=== PATIENT | male | born 1950 | race Two or more races ===

== ENCOUNTER 2021-11-12 15:17 | Inpatient (IN) | payer MEDICARE ==
[~2021-11-12] VITALS: Ht 182.9 cm; Wt 77.6 kg
[2021-11-12] MEDS ORDERED: QUET25TA PO (17:46)
--- NOTE | 2021-11-12 17:54 | NUR ---
RN-CO: Notified Dr Camarena regarding this new admit patient.
[2021-11-12 18:09] VITALS: BP 160/69
[2021-11-12] MEDS ORDERED: MAGNESIUM HYDROXIDE 30 ML UDC PO PRN (18:30)
[2021-11-12] MEDS ORDERED: LORAZEPAM 0.5 MG TABLET PO PRN (18:30)
[2021-11-12] MEDS ORDERED: ACETAMINOPHEN 325 MG TABLET PO PRN (18:30)
[2021-11-12] MEDS ORDERED: BLOOD SUGAR DIAGNOSTIC 1 EACH STRIP IN ONE (18:30)
[2021-11-12] MEDS ORDERED: MAG HYDROX/AL HYDROX/SIMETH 30 ML UDC PO PRN (18:30)
--- NOTE | 2021-11-12 18:34 | NUR ---
RN-CO: Dr Migue Young ( inspector conveyor line ) called back and gave admitting orders.
--- NOTE | 2021-11-12 19:05 | NUR ---
GPS DELIVERY CREW MEMBER NOTES: ADMITTED A 69-Y/O, MALE, FROM [facility]. ADMITTED ON 5150 FOR DTS. PER HOLD, PATIENT PRESENTS COMPLAINING OF WORSENING DEPRESSION AND ANXIETY, FEELING HOPELESS AND SUICIDAL. PATIENT CONTINUES TO ENDORSE SUICIDAL IDEATIONS WITH PLAN AND INTENT TO OVERDOSE ON MEDICATION "PILLS". UPON FACE TO FACE ASSESSMENT, PATIENT IS ALERT AND ORIENTED X4, COOPERATIVE TO CARE, GUARDED AND BLUNTED AFFECT. DENIED SI/HI/AVH AT THIS TIME. SKIN ASSESSMENT DONE. SKIN IS CLEAR. HANDBOOK AND PRESCRIPTION MEDICATIONS GUIDE GIVEN TO PATIENT. PATIENT HAS BEEN ORIENTED TO UNIT POLICY. BELONGINGS WERE INVENTORIED AND CHECKED FOR CONTRABAND. PATIENT IS UNDER THE PSYCHIATRIC CARE OF DR. SHEA AND MEDICAL CARE OF DR. VALDIVIA. BED IN LOW AND LOCKED POSITION. SIDE RAILS UP X2. SAFETY PRECAUTIONS MAINTAINED. WILL CONTINUE TO MONITOR Q15 MINS FOR MOOD, SAFETY AND BEHAVIOR. Addendum: 11/13/21 at 0441 by JANICE KUMAR RN PATIENT'S DAUGHTER VIANCA FRIENDSHIP NOTIFIED OF PATIENT'S ADMISSION.
[2021-11-12 20:00] VITALS: BP 112/60
[2021-11-12] MEDS: TEMAZEPAM 7.5 MG CAPSULE PO PRN (20:10)
[2021-11-13 08:00] VITALS: BP 108/64
[2021-11-13] MEDS: QUETIAPINE FUMARATE 25 MG TABLET PO SCH ×3 (09:25→17:45)
--- NOTE | 2021-11-13 13:49 | NUR ---
MASSIEL Clinical Note: Patient placed on a 5150 hold for danger to self. Patient brought in due to pt having suicidal thoughts. Pt lives at [address] [place] [address]; ([phone]). Patient is unsure if he wants to go back home or would want to go to a SNF. SW gave pt options.
--- NOTE | 2021-11-13 13:49 | NUR ---
MASSIEL Initial Discharge Plan: Pt lives at [address] [place] [address]; ([phone]). Patient is unsure if he wants to go back home or would want to go to a SNF. MASSIEL gave pt options. MASSIEL will work with the MD, treatment team, and doctor to help coordinate appropriate discharge.
--- NOTE | 2021-11-13 13:50 | NUR ---
Social Work Note/Substance Abuse Intervention: Patient was provided with a brief substance abuse intervention and referred to [facility] ([phone]), [facility] ([phone]), and [facility] ([phone]) for using cocaine.
--- NOTE | 2021-11-13 14:51 | NUR ---
SW Family Contact: SW attempted to contact pt's Trupti ([phone]) to gather collateral and discuss treatment plan. However, 's phone was off and had no voicemail. SW unable to leave voicemail at this time.
--- NOTE | 2021-11-13 14:53 | NUR ---
MASSIEL Family Contact: Per pt's request he wanted this flex o writer operator to contact daughter Marissa ([phone]) to discuss treatment/discharge plan. MASSIEL left a detailed voicemail.
--- NOTE | 2021-11-13 15:58 | NUR ---
Patient refused all labs ,encourage and explained importance x3 still refused .
[2021-11-13 16:00] VITALS: BP 103/58
--- NOTE | 2021-11-13 16:01 | NUR ---
Individual Counseling: SW attempted to do individual counseling with pt. However, the pt. was sleeping and not aroused via verbal cues. Pt. will be invited to next therapeutic milieu.
[2021-11-13 19:34] VITALS: BP 106/52
[2021-11-14 08:00] VITALS: BP 107/63
[2021-11-14] MEDS: QUETIAPINE FUMARATE 25 MG TABLET PO SCH ×3 (09:50→17:49)
--- NOTE | 2021-11-14 10:44 | NUR ---
MASSIEL Family Contact: MASSIEL spoke with patient's daughter Marissa ([phone]) to discuss treatment and discharge plan. SW discussed facility options and daughter was agreeable with this plan.
[2021-11-14] MEDS: TEMAZEPAM 7.5 MG CAPSULE PO PRN (21:02)
[2021-11-15 08:00] VITALS: BP 138/66
--- NOTE | 2021-11-15 08:23 | NUR ---
MASSIEL SNF Referral: MASSIEL sent clinicals to [facility] ([phone]) for placement. MASSIEL sent H & P, progress notes, and medications list.
--- NOTE | 2021-11-15 08:30 | NUR ---
CALL OUT TO DR. RYAN'S OFFICE FOR CONSULT,ORDERED YESTERDAY.
[2021-11-15] MEDS: QUETIAPINE FUMARATE 25 MG TABLET PO SCH ×3 (09:00→18:08)
--- NOTE | 2021-11-15 10:32 | NUR ---
given ativan for agitation. Addendum: 11/15/21 at 1547 by STEVEN WALTERS RN duplicate entry.
--- NOTE | 2021-11-15 10:45 | NUR ---
GIVEN ATIVAN FOR SEVERE AGITATION.
--- NOTE | 2021-11-15 10:46 | NUR ---
ALLIGATOR TRAPPER INFORMED TO SPEAK WITH PT.ABOUT NEW HOLD.
--- NOTE | 2021-11-15 14:53 | NUR ---
MASSIEL Note: SW spoke with patient in regards to 5150 hold and 5250 hold. He appeared understanding.
--- NOTE | 2021-11-15 14:54 | NUR ---
MASSIEL Note: SW expressed to pt that this writer producer has sent his clinicals and is waiting for the facilities to review.
--- NOTE | 2021-11-15 14:55 | NUR ---
MASSIEL Family Contact: MASSIEL spoke with patient's daughter Marissa ([phone]) and updated on pt's current condition.
[2021-11-15 16:00] VITALS: BP 136/79
--- NOTE | 2021-11-15 16:04 | NUR ---
spoke to soc. worker several times to speak with pt. pt. forgetful and asks same questions more than once.
[2021-11-15 20:00] VITALS: BP 110/68
[2021-11-15] MEDS: TEMAZEPAM 7.5 MG CAPSULE PO PRN (21:44)
[2021-11-16 06:35] LABS: EOSINOPHILS % (AUTO) 5.4 % (0.0-6.0); HEMATOCRIT 41 % (39-51); HEMOGLOBIN 13.7 g/dL (13.5-17.5); LYMPHOCYTES # (AUTO) 1.9 K/uL (0.8-4.8); MEAN CORPUSCULAR HGB CONC 34 g/dl (31.0-36.0); MEAN CORPUSCULAR VOLUME 91 fL (80-96); MONOCYTES # (AUTO) 0.5 K/uL (0.1-1.30); MONOCYTES % (AUTO) 10.6 % (2.0-12.0); NEUTROPHILS # (AUTO) 2.4 K/uL (1.8-8.9); PLATELET COUNT (AUTO) 160 K/uL (150-450); RED BLOOD CELL COUNT(AUTO) 4.49 MIL/uL (4.5-6.0); WHITE BLOOD COUNT (AUTO) 5.1 K/uL (4.3-11.0)
[2021-11-16 07:28] LABS: CALCIUM, SERUM 8.7 mg/dL (8.5-10.1); CREATININE 0.8 mg/dL (0.6-1.3); MAGNESIUM 2.1 mg/dL (1.8-2.4); POTASSIUM 4.2 mmol/L (3.5-5.1)
[2021-11-16 08:00] VITALS: BP 116/64
[2021-11-16] MEDS: QUETIAPINE FUMARATE 25 MG TABLET PO SCH ×3 (08:33→16:17)
[2021-11-16 16:00] VITALS: BP 105/59
--- NOTE | 2021-11-16 19:30 | NUR ---
GPS RN NOTE, RECEIVED PATIENT AWAKE AND IN BED, NO S/S OR COMPLAINTS OF PAIN AT THIS TIME. PATIENT IS DISPLAYING NO S/S OF APPARENT DISTRESS AT THIS TIME. PATIENT BREATHING IS UNLABORED WITH EQUAL RISE AND FALL OF THE CHEST. PATIENT IS ALERT AND ORIENTED X 3 ON ROOM AIR WITH A SPO2 97%. PATIENT IS COMPLIANT WITH MEDICATIONS, NEEDY, ATTENTION SEEKING, ANXIOUS AT TIMES, AND COOPERATIVE. PATIENT DENIES SUICIDAL AND HOMICIDAL IDEATIONS AT THIS TIME. PATIENT ASSISTED WITH TURNING AND REPOSITIONING Q2HR AND PRN FOR COMFORT AND CIRCULATION. PATIENT HAS NO NEEDS AT THIS TIME. PATIENT EDUCATED ON THE USE OF THE CALL ESCOBAR. PATIENT BED SIDE RAILS UP X 2 FOR SAFETY. PATIENT BED IS LOCKED, LOW, WITH BED ALARM ON. WILL CONTINUE TO MONITOR THIS PATIENT Q15 MINUTES WITH THE HELP OF STAFF TO MAINTAIN SAFETY.
[2021-11-16 20:00] VITALS: BP 128/59
[2021-11-16] MEDS: TEMAZEPAM 7.5 MG CAPSULE PO PRN (21:38)
--- NOTE | 2021-11-16 21:39 | NUR ---
GPS RN NOTE, PATIENT HAS A COMPLAINT OF NOT BEING ABLE TO SLEEP AND IS REQUESTING RESTORIL AT THIS TIME. PATIENT VITAL SIGNS ARE STABLE. GAVE RESTORIL 7.5MG PO HS PRN ORDERED. WILL REASSESS FOR INSOMNIA AND I WILL CONTINUE TO MONITOR THIS PATIENT WITH THE HELP OF STAFF.
[2021-11-17 08:00] VITALS: BP 109/64
[2021-11-17] MEDS: QUETIAPINE FUMARATE 25 MG TABLET PO SCH ×3 (08:46→16:20)
--- NOTE | 2021-11-17 09:20 | NUR ---
RN Notes: Received pt. awake in his room and interacting with the room mate. No distress and no agitation noted. Ate 100% for breakfast, compliant on med. Pt. doesn't want to disclose information to anybody. Encouraged to verbalize feelings and motivated to attend group activity. Needs attended and will continue to monitor for safety.
--- NOTE | 2021-11-17 10:38 | NUR ---
SW SNF Contact: MASSIEL received a call from [facility] ([phone]) who stated that pt is accepted at [facility].
--- NOTE | 2021-11-17 10:39 | NUR ---
MASSIEL Note: SW spoke with patient being accepted at [facility] and he was agreeable of this.
--- NOTE | 2021-11-17 10:39 | NUR ---
MASSIEL Family Contact: SW contacted pt's daughter Marissa ([phone]) and left a detailed voicemail that pt is accepted at [facility] and that he will be discharged on Saturday, 11/20.
--- NOTE | 2021-11-17 10:40 | NUR ---
Court Notification: MASSIEL contacted pt's daughter Marissa ([phone]) and left a voicemail of pt's 1721 hearing is today.
--- NOTE | 2021-11-17 15:17 | NUR ---
Court Hearing: Patient's court hearing for 4120 was today and it was upheld for GD.
[2021-11-17 16:00] VITALS: BP 151/55
[2021-11-17 20:33] VITALS: BP 133/72
[2021-11-17] MEDS: TEMAZEPAM 7.5 MG CAPSULE PO PRN (21:02)
[2021-11-18 08:00] VITALS: BP 114/59
[2021-11-18] MEDS: QUETIAPINE FUMARATE 25 MG TABLET PO SCH ×3 (08:02→16:10)
--- NOTE | 2021-11-18 09:39 | NUR ---
RN Notes: Received pt. awake in his room and interacting with the room mate. Ate 100% for breakfast and compliant on med. Encouraged to verbalize feelings and motivated to attend group activity. Needs attended, no distress and no agitation noted. Will continue to monitor for safety.
[2021-11-18 16:00] VITALS: BP 110/61
--- NOTE | 2021-11-18 19:30 | NUR ---
GPS RN NOTE, RECEIVED PATIENT AWAKE AND IN BED, NO S/S OR COMPLAINTS OF PAIN AT THIS TIME. PATIENT IS DISPLAYING NO S/S OF APPARENT DISTRESS AT THIS TIME. PATIENT BREATHING IS UNLABORED WITH EQUAL RISE AND FALL OF THE CHEST. PATIENT IS ALERT AND ORIENTED X 3 ON ROOM AIR WITH A SPO2 98%. PATIENT IS COMPLIANT WITH MEDICATIONS, NEEDY, HYPERVERBAL, ATTENTION SEEKING, ANXIOUS AT TIMES, AND COOPERATIVE. PATIENT DENIES SUICIDAL AND HOMICIDAL IDEATIONS AT THIS TIME. PATIENT ASSISTED WITH TURNING AND REPOSITIONING Q2HR AND PRN FOR COMFORT AND CIRCULATION. PATIENT HAS NO NEEDS AT THIS TIME. PATIENT EDUCATED ON THE USE OF THE CALL ESCOBAR. PATIENT BED SIDE RAILS UP X 2 FOR SAFETY. PATIENT BED IS LOCKED, LOW, WITH BED ALARM ON. WILL CONTINUE TO MONITOR THIS PATIENT Q15 MINUTES WITH THE HELP OF STAFF TO MAINTAIN SAFETY.
[2021-11-18 20:13] VITALS: BP 117/64
[2021-11-18] MEDS: TEMAZEPAM 7.5 MG CAPSULE PO PRN (20:47)
--- NOTE | 2021-11-19 07:50 | NUR ---
RN NOTE PATIENT IS AWAKE IN BED RESTING A/O X 4. NO S/S OF PAIN NOTED AT THIS TIME. ON ROOM AIR, NO DISTRESS OR SHORTNESS OF BREATH NOTED. PATIENT IS COMPLIANT WITH MEDICATIONS. PATIENT DENIES SUICIDAL AND HOMICIDAL IDEATIONS AT THIS TIME. FALL AND SAFETY MEASURES IN PLACE, BED IN LOW AND LOCK POSITION, CALL LIGHT AND TABLE WITHIN EASY REACH, SIDE RAILS UP X2. PATIENT EDUCATED ON THE USE OF THE CALL ESCOBAR. PATIENT HAS NO NEEDS AT THIS TIME. WILL CONTINUE TO MONITOR THIS PATIENT Q15 MINUTES TO MAINTAIN SAFETY.
[2021-11-19 08:00] VITALS: BP 119/66
[2021-11-19] MEDS: QUETIAPINE FUMARATE 25 MG TABLET PO SCH ×3 (08:27→17:46)
[2021-11-19 16:00] VITALS: BP 107/57
--- NOTE | 2021-11-19 18:20 | NUR ---
RN NOTE PATIENT IS GOING TO BE D/C TO [facility] TOMORROW, SATURDAY, COVID-19 TEST WAS COLLECTED AND TAKEN TO THE LAB.
--- NOTE | 2021-11-19 18:42 | NUR ---
RN CLOSING NOTE PATIENT IS AWAKE IN BED RESTING A/O X 4. NO S/S OF PAIN NOTED AT THIS TIME. ON ROOM AIR, NO DISTRESS OR SHORTNESS OF BREATH NOTED. PATIENT IS COMPLIANT WITH MEDICATIONS. PATIENT DENIES SUICIDAL AND HOMICIDAL IDEATIONS AT THIS TIME. FALL AND SAFETY MEASURES IN PLACE, BED IN LOW AND LOCK POSITION, CALL LIGHT AND TABLE WITHIN EASY REACH, SIDE RAILS UP X2. PATIENT EDUCATED ON THE USE OF THE CALL ESCOBAR. PATIENT HAS NO NEEDS AT THIS TIME. PATIENT WAS MONITOR Q15 MINUTES TO MAINTAIN SAFETY. WILL ENDORSE TO [employer]URAL SCIENCES DEPARTMENT CHAIR.
[2021-11-19 19:45] VITALS: BP 111/76
[2021-11-19 20:00] VITALS: BP 117/72
[2021-11-19] MEDS: TEMAZEPAM 7.5 MG CAPSULE PO PRN (20:19)
[2021-11-20 08:00] VITALS: BP 117/67
--- NOTE | 2021-11-20 08:09 | NUR ---
SW Discharge Note: Patient will be discharged to residential facility [facility] [address] [address], [place] [address]; ). Please arrange ambulance at 1PM. Stump Shooter spoke with Ref[facility] Receiving Manager at [facility]; ([phone]), who stated patient will be accepted today. Patients daughter Marissa ([phone]) is aware and agreeable of dc. Patient is alert and oriented x3. Patient denies any suicidal or homicidal ideations. Patient is aware and agreeable with discharge plans. Patient will continue to follow-up with (Psychiatrist) Dr. Tena [address] [address], [place] [address]; ([phone]) and (Register In Chancery) Dr. Andres [address], [place] [address]; ([phone]). Patient presents with euthymic mood and congruent affect.
[2021-11-20] MEDS: QUETIAPINE FUMARATE 25 MG TABLET PO SCH ×2 (09:08→12:44)
--- NOTE | 2021-11-20 13:45 | NUR ---
Patient discharged to [facility] in stable condition.Compliant with medications ,cooperative with treatment plans Patient denies SI/HI/AVH .Behavior improved ,psychiatric tx plans met ,medical tx plans differed for for continual monitoring .Educated pt about after care plan (Exit -care)and copy provided .Returned personal belongings to patient med list given and explained to patient able to verbalize understanding, report given to Higinio DOWEL INSERTING MACHINE OPERATOR in facility .Vs stable ,no c/o pain .Patient seen by and DNP with discharge orders and med reconciliation .Patient discharge at 13:45 with ambulance.
== END 2021-11-20 13:45 | DRG 881 ==
LOC: EDBD 17:32 → GPS 17:32
PROVIDERS: ADMIT Nurse Practitioner Psychiatric/Mental Health; ATTEND Internal Medicine
DX: F32.9 Major depressive disorder, single episode, unspecified (principal); R45.851 Suicidal ideations; F23 Brief psychotic disorder; F41.9 Anxiety disorder, unspecified; Z73.6 Limitation of activities due to disability; R53.1 Weakness; R27.8 Other lack of coordination; Z91.81 History of falling; G31.84 Mild cognitive impairment of uncertain or unknown etiology; F19.10 Other psychoactive substance abuse, uncomplicated; Z79.899 Other long term (current) drug therapy
CPT/HCPCS: 36415; 80048-TC; 83735-TC; 84100-TC; 85025-TC; 87081-TC; 93307-TC